=== PATIENT | male | born 1970 | race Caucasian/White ===

== ENCOUNTER 2022-02-23 08:15 | Day surgery (SDC) | payer OTHER ==
[~2022-02-23] VITALS: Ht 182.9 cm; Wt 123.4 kg
[~2022-02-23 08:15] MED LIST: ADVIL200 M1 PO; FLONASE ALLERG9.9 ML; PSEUDOEPHEDRIN120 MG PO; ZYRTEC10 MG PO
--- NOTE | 2022-02-23 10:47 | NUR ---
02/23/22 1047 Sheets,Ciera 1021 PT ARRIVED TO PACU AND O2 TURNED OFF. VSS. PT WAKES EASILY AND DENIES CONCERNS. 1025 PT PASSING LARGE AMOUNT OF GAS/AIR AND ENCOURAGED TO DO SO.
--- NOTE | 2022-02-24 08:24 | OR ---
[facility] [address], [place] [address] Signed DATE OF OPERATION: 02/23/2022 SURGEON: Jak Shane MD PREOPERATIVE DIAGNOSIS: Father with colonic polyps in his 50s. POSTOPERATIVE DIAGNOSES: 1. A 4 mm polyp at 12 cm. 2. A 3 mm polyp at 25 cm (sigmoid colon). 3. A 7 mm polyp at 35 cm (snare). 4. Base of polyp at 35 cm. PROCEDURES: Colonoscopy with snare polypectomy and hot biopsy. ESTIMATED BLOOD LOSS: None. INDICATIONS: Jim is a 51-year-old gentleman, asked to see me for his initial colonoscopy. His dad had developed colonic polyps in his 50s. He had multiple repeat colonoscopies to remove all the polyps. His dad eventually was going every five years. His dad is now 75 years old and doing quite well. Jim has no lower GI complaints. I gave him a pamphlet in the office on colonoscopy. We reviewed the nature of the test along with the risks including, but not limited to gas bloating, crampy abdominal pain, bleeding, perforation requiring surgery, and missed diagnosis. We also discussed the need for IV conscious sedation. He had expressed understanding and wished to proceed. DESCRIPTION OF PROCEDURE: Jim was taken into our endoscopy suite and placed in the left lateral decubitus position. He was given 10 mg of Versed and 150 mcg of fentanyl to cover the entire case. A digital rectal exam was performed and this was unremarkable. He has good sphincter tone. He is starting to get some induration and enlargement of the prostate gland. The adult colonoscope had been introduced and advanced all the way around up to the cecum. He had some liquid bilious stool right at the base of the cecum, I could not quite reach and irrigate it out or suction. Otherwise, his prep was quite good. We could easily see the ileocecal valve. The scope was then slowly withdrawn. He has no diverticulosis. The above-mentioned polyps were removed with the help of hot biopsy forceps. We did use our snare at 35 cm. We then used a hot biopsy forceps to remove Electronically Signed By: JAK SHANE MD 02/24/22 0824 PATIENT NAME: JIM LEUNG [facility] OPERATIVE REPORT DATE OF : 70 REPORT #: [id number] PHYSICIAN: JAK SHANE MD PCP: SHILA BALDERRAMA MD REPORT IS CONFIDENTIAL AND NOT TO BE RELEASED WITHOUT AUTHORIZATION [facility] [address], [place] [address] Signed the base of that polyp at 35 cm. The scope was then retroflexed in the rectum and really he has very little if any internal hemorrhoid tissue. After this, the gas was suctioned out colonoscope removed. Jim tolerated the procedure quite well. RECOMMENDATIONS: Jim can follow up in 7 to 10 days to review his results. It looks like he will be on the five year plan mainly because of his father at this point. Jak Shane MD ALB/EDMUNDOL /[id number] cc: Shila Balderrama MD Patient Chart Jak Shane MD Copies: SHILA BALDERRAMA MD, ANDREW L MD ~ Electronically Signed By: JAK SHANE MD 02/24/22 0824 PATIENT NAME: JIM LEUNG SIMPSON OPERATIVE REPORT DATE OF : 70 REPORT #: [id number] PHYSICIAN: JAK SHANE MD PCP: SHILA BALDERRAMA MD REPORT IS CONFIDENTIAL AND NOT TO BE RELEASED WITHOUT AUTHORIZATION
--- NOTE | 2022-02-24 15:31 | PATH ---
[facility] [address], [place] [address] Signed SPECIMEN(S): A RECTAL POLYP AT 12 CM SPECIMEN(S): B COLON POLYP AT 25 CM SPECIMEN(S): C COLON POLYP AT 35 CM SPECIMEN(S): D BASE OF POLYP AT 35 CM SPECIMEN SOURCE: A. RECTAL POLYP AT 12 CM B. COLON POLYP AT 25 CM C. COLON POLYP AT 35 CM D. BASE OF POLYP AT 35 CM CLINICAL HISTORY: Primary colon screening, family history of colon polyps. Post: Colon polyps, internal hemorrhoids. FINAL PATHOLOGIC DIAGNOSIS: A. Rectal polyp at 12 cm: - Hyperplastic polyp (one fragment). B. Colon polyp at 25 cm: - Hyperplastic polyp (one fragment). C. Colon polyp at 35 cm: - Tubular adenoma (multiple fragments). D. Base of polyp at 35 cm: - Hyperplastic polyp (one fragment). JVR:smh:C2NR MICROSCOPIC EXAMINATION: Histologic sections of all submitted blocks are examined by light microscopy. These findings, together with the gross examination, support the pathologic diagnosis. GROSS DESCRIPTION: Four specimens are received in four containers labeled with "CN." A. The specimen, labeled "CN, 1," and designated on the requisition "rectal polypectomy, 12 cm," is received in formalin and consists of two fragments of pink[place] tissue (0.2 cm in greatest dimension). The specimen is submitted entirely in cassette (A1). B. The specimen, labeled "CN, 2," and designated on the requisition "25 cm colon polypectomy at 25 cm," is received in formalin and consists of one fragment of pink[place] tissue (0.5 cm in greatest dimension). The specimen is submitted entirely in cassette (B1). PATIENT NAME: JIM LEUNG [facility] DATE OF : 70 REPORT #: [id number] PHYSICIAN: [facility] PCP: SHILA HITCHCOCK MD REPORT IS CONFIDENTIAL AND NOT TO BE RELEASED WITHOUT AUTHORIZATION [facility] [address], [place] [address] Signed C. The specimen, labeled "CN, 3," and designated on the requisition "colon polypectomy at 35 cm," is received in formalin and consists of four fragments of pink[place] tissue (0.2-0.8 cm in greatest dimension). The specimen is submitted entirely in cassette (C1). D. The specimen, labeled "CN, 4," and designated on the requisition "base of polyp 35 cm," is received in formalin and consists of one fragment of [place] tissue (0.3 cm in greatest dimension). The specimen is submitted entirely in cassette (D1). AC (under the direct supervision of a pathologist) The Gross Description was prepared using a voice recognition system. The report was reviewed for accuracy; however, sound-alike word errors, addition and/or deletions may occur. If there is any question about this report, please contact Client Services. PERFORMING LABORATORY: The technical component was performed by [facility], [address] [place] [id number] (CLIA# [id number]). Professional interpretation was performed by [facility], [address] [place] [id number] (CLIA#: [id number]). Diagnostician: Pablito Esposito MD Pathologist Electronically Signed 02/24/2022 Copies: ~ PATIENT NAME: LUZASHANTIDYLANY [facility] DATE OF : 70 REPORT #: [id number] PHYSICIAN: [facility]OLOG[facility] PCP: SHILA HITCHCOCK MD REPORT IS CONFIDENTIAL AND NOT TO BE RELEASED WITHOUT AUTHORIZATION
== END 2022-02-23 11:04 | disposition home or self-care (01) ==
LOC: DSVR 08:15 → OPS 08:15 → DSVR 08:20 → DS 10:00 → OPS 10:00
PROVIDERS: ATTEND Colon & Rectal Surgery
PROC: 0DBE8ZX Excision of Large Intestine, Via Natural or Artificial Opening Endoscopic, Diagnostic (ICD-10-PCS; 2022-02-23)
PROC: 0DBN8ZX Excision of Sigmoid Colon, Via Natural or Artificial Opening Endoscopic, Diagnostic (ICD-10-PCS; principal; 2022-02-23 10:00)
DX: Z12.11 Encounter for screening for malignant neoplasm of colon (principal); Z83.71 Family history of colonic polyps; E66.9 Obesity, unspecified; D12.6 Benign neoplasm of colon, unspecified
CPT/HCPCS: 99153; G0500; J2250; J3010; J7121